=== PATIENT | female | born 1940 | race Caucasian/White ===

== ENCOUNTER → 2018-02-01 08:14 | Outpatient (CLI) | payer MEDICARE, OTHER ==
[~2018-02-01] VITALS: Ht 177.8 cm; Wt 95.5 kg
--- NOTE | ~2018-02-01 | HEMODYNAMI ---
PATIENT:THEO LAWSON MEDICAL RECORD: [id number] : 36 LOCATION:[facility] ADMISSION DATE: 02/01/18 Generatedon:02/01/201810:05 Patient name: THEO LAWSON Patient #: [id number] SSN: : 1940 Date of study: 02/01/2018 Page: Of Hemodynamic Procedure Report Patient Data Patient Demographics Procedure consent was obtained First Name: THEO Gender: Female Last Name: LULU : 1940 [facility] Initial: XU Age: 77 year(s) Patient #: [id number] Race: Unknown Additional ID: [id number] Contact details [address]: [address] [place] [address] State: [place] City: [place] Zip code: [address] Past Medical History Allergies Allergen Reaction Date Comments Reported Other allergy 02/01/2018 Thallium Admission Admission Data Admission Date: 02/01/2018 Admission Time: 8:14 Weight (lbs.): 215 Weight (kg.): 97.52 Lab Results Lab Result Date: 02/01/2018 Lab Result Time: 0:00 Biochemistry Name Units Result Min Max BUN mg/dl 34 --(----)-* 7 18 Creatinine mg/dl 1.2 --(---*)-- 0.6 1.3 CBC Name Units Result Min Max Hemoglobin g/dl 12.1 *-(----)-- 13.5 17.5 Procedure Procedure Types Cath Procedure Diagnostic Procedure LHC LHC w/Coronaries Procedure Description Procedure Date Procedure Date: 02/01/2018 Procedure Start Time: 9:55 Procedure End Time: 10:05 Procedure Staff Name Function Phillip Mayo MD Performing Physician Deisi Weaver RT Monitor Petrona Montelongo RT Scrub Farheen Thorne RN Nurse Viridiana Martines RN Nurse Procedure Data Cath Procedure Fluoroscopy Diagnostic fluoroscopy Total fluoroscopy Time: 1.3 time: 1.3 min min Diagnostic fluoroscopy Total fluoroscopy dose: 303 dose: 303 mGy mGy Contrast Material Contrast Material Type Amount (ml) Isovue 300 43 Entry Location Entry Primary Successful Side Size Upsize Upsize Entry Closure Succes sful Closure Location (Fr) 1 (Fr) 2 (Fr) Remarks Device Remarks Femoral Right 5 Fr Exoseal artery Estimated blood loss: 5 ml Diagnostic catheters Device Type Used For End Catheter Placement MULTIPACK Pigtail 5 Fr LV Angiography catheter MULTIPACK JL 4.0 5Fr Left Coronary catheter Angiography MULTIPACK 3DRC 5Fr Right Coronary catheter Angiography Procedure Complications No complications Procedure Medications Medication Administration Route Dosage Oxygen etCO2 Nasal cannula 2 l/min Zofran I.V. 4 mg Lidocaine 2% added to field 20 Heparin Flush Bag added to field 2 bags (1000units/500ml NS) 0.9% NaCl I.V. 100 ml/hr Versed I.V. 2 mg Fentanyl I.V. 50 mcg Fentanyl I.V. 50 mcg Hemodynamics Rest HGB: 12.1 (g/dl) Heart Rate: 63 (bpm) Snapshots Pre Cath Intra NCS Post Cath Vital Signs Time Heart Resp SPO2 etCO2 NIBP (mmHg) Rhythm Pain Sedation Rate (ipm) (%) (mmHg) Status Level (bpm) 9:35:16 60 13 99 32 171/77(127) NSR 0 (11) 10(A) , No pain 9:40:13 62 14 100 36 162/72(107) NSR 0 (11) 10(A) , No pain 9:45:02 63 15 96 35 130/66(100) NSR 0 (11) 10(A) , No pain 9:49:46 66 17 100 34.6 136/71(119) NSR 0 (11) 10(A) , No pain 9:55:10 60 15 100 35.3 133/67(103) NSR 0 (11) 10(A) , No pain 9:59:53 85 15 100 34.6 133/75(106) NSR 0 (11) 10(A) , No pain 10:04:39 67 6 100 32.3 143/70(116) NSR 0 (11) 10(A) , No pain Medications Time Medication Route Dose Verified Delivered Reason Notes Ef fectiveness by by 9:38:36 Zofran I.V. 4 mg Phillip Zhong Per pt has Gael Thorne RN physician N/V with sedation 9:38:37 Oxygen etCO2 2 Phillip Buffsandro used for Nasal l/min Gael Tohrne RN procedure cannula 9:38:58 Lidocaine 2% added 20ml Phillip Phillip for local to vial Gael Mayo MD anesthetic field 9:39:07 Heparin Flush added 2 Phillipdg Fisher used for Bag to bags Gael Mayo MD procedure (1000units/500ml field NS) 9:39:13 0.9% NaCl I.V. 100 Phillip Buffie Per ml/hr Gael Thorne RN physician 9:52:04 Versed I.V. 2 mg Phillip Viridiana for Gael Martines sedation RN 9:52:20 Fentanyl I.V. 50 Phillip Viridiana for mcg Gael Martines sedation RN 9:57:17 Fentanyl I.V. 50 Phillip Viridiana for mcg Gael Martines sedation kitchen helper Log Time Note 9:19:13 Time tracking: Regular hours (M-F 7:00 - 5:00) 9:19:17 Plan of Care:Hemodynamics will remain stable., Cardiac rhythm will remain stable., Comfort level will be maintained., Respiratory function will remain adequate., Patient/ family verbilizes understanding of procedure., Procedure tolerated without complication., Recovers from procedure without complications.. 9:19:19 Signed procedure consent form obtained from patient. 9:19:31 H&P Date Dictated: 01/04/2018 Within 30 days and on chart., H&P Addendum completed by physician on day of procedure. (MUST COMPLETE FOR ALL OUTPATIENTS). 9:19:41 Viridiana Martines RN sent for patient. Start room use. 9:20:01 Patient Weight : 215 lbs 9:24:21 Lab Result : Creatinine 1.2 mg/dl 9:24:21 Lab Result : BUN 34 mg/dl 9:24:21 Lab Result : Hemoglobin 12.1 g/dl 9:27:23 Patient received from Pre/Post Procedure Room to CCL 1 Alert and oriented. Tansferred to table in Supine position. 9:27:26 Warm blankets applied, and romel hugger turned on for patient comfort. 9:27:27 Correct patient and procedure confirmed by team. 9:27:27 ECG and BP/O2 sat monitors applied to patient. 9:34:11 Vital chart was started 9:36:03 Rhythm: sinus rhythm 9:36:05 Baseline sample Acquired. 9:36:05 Full Disclosure recording started 9:36:06 Pre-procedure instructions explained to patient. 9:36:07 Pre-op teaching completed and patient verbalized understanding. 9:36:08 Family in patients room. 9:36:10 Patient NPO since Midnight. 9:36:26 Patient allergic to Other allergyThallium 9:36:29 Is the patient allergic to Iodine/contrast media? No. 9:36:32 Is patient on blood thinner?No 9:36:33 Patient diabetic? No. 9:36:36 Previous problem with sedation/anesthesia? Yes Nausea/Vomiting 9:36:50 Snore? Yes 9:36:51 Sleep apnea? No 9:36:52 Deviated septum? No 9:36:53 Opens mouth fully? Yes 9:36:53 Sticks out tongue? Yes 9:36:55 Airway obstruction? No ? 9:36:57 Dentures? No ? 9:37:01 Pre procedure: right dorsailis pedis pulse 2+ Normal; easily identifiable; not easily obliterated 9:37:03 Modified Luis's test Ulnar > 7 seconds. 9:37:06 Patient pain scale 0/10 ?. 9:37:13 IV patent on arrival in left forearm with 0.9% NaCl at O. 9:37:15 Lab results completed and on chart. 9:37:19 Right groin area was prepped with chlora-prep and draped in sterile fashion 9:37:20 Alarms reviewed by R. N. 9:37:20 Sharps counted by scrub and verified by R.N. 9:37:24 Use device set Femoral Dx 9:37:25 ACIST Syringe (59764) opened to sterile field. 9:37:26 Bag Decanter (2002S) opened to sterile field. 9:37:26 Medline Cath Pack ([id number]) opened to sterile field. 9:37:27 DIAGNOSTIC WIRE .035 260cm J wire (945669) opened to sterile field. 9:37:28 ACIST Manifold (07693) opened to sterile field. 9:37:29 DIAGNOSTIC Multipack 5Fr catheter set ([id number]) opened to sterile field. 9:37:31 Tegaderm 4 x 4 (1626W) opened to sterile field. 9:37:32 SHEATH Prelude 5Fr 0.035 ([id number]-[id number]-77-035) opened to sterile field. 9:38:36 Zofran 4 mg I.V. was administered by Farheen Thorne RN; Per physician; pt has N/V with sedation 9:38:37 Oxygen 2 l/min etCO2 Nasal cannula was administered by Farheen Thorne RN; used for procedure; 9:38:58 Lidocaine 2% 20ml vial added to field was administered by Phillip Mayo MD; for local anesthetic; 9:39:07 Heparin Flush Bag (1000units/500ml NS) 2 bags added to field was administered by Phillip Mayo MD; used for procedure; 9:39:13 0.9% NaCl 100 ml/hr I.V. was administered by Farheen Thorne RN; Per physician; 9:42:35 Zero performed for pressure channel P1 9:42:55 Physician paged 9:43:28 ACIST Hand Control (42971) opened to sterile field. 9:51:33 Final Timeout: patient, procedure, and site verified with staff and physician. All members of the team are in agreement. 9:51:35 Right groin site verified by team. 9:51:38 Physical assessment completed. ASA score P 2 - A patient with mild systemic disease as per Phillip Mayo MD. 9:51:40 Sedation plan: IV Moderate Sedation Medication:Versed, Fentanyl 9:52:04 Versed 2 mg I.V. was administered by Viridiana Martines RN; for sedation; 9:52:20 Fentanyl 50 mcg I.V. was administered by Viridiana Martines RN; for sedation; 9:55:27 Procedure started. 9:55:30 Local anesthetic to right femoral artery with Lidocaine 2% by Phillip Mayo MD.INITIAL ACCESS ONLY 9:55:37 A 5 Fr sheath was inserted into the Right Femoral artery 9:57:17 Fentanyl 50 mcg I.V. was administered by Viridiana Martines RN; for sedation; 9:57:35 A MULTIPACK Pigtail 5 Fr catheter was advanced over the wire and used for LV Angiography. 9:57:39 LV gram done using MCCORD 9:57:42 Injector settings: Ml/sec: 10, Volume: 20, 9:58:28 EF : 50 % 9:58:29 Catheter removed. 9:58:41 A MULTIPACK JL 4.0 5Fr catheter was advanced over the wire and used for Left Coronary Angiography. 9:59:46 Catheter removed. 10:00:05 A MULTIPACK 3DRC 5Fr catheter was advanced over the wire and used for Right Coronary Angiography. 10:01:08 Catheter removed. 10:01:10 EXOSEAL 5Fr (EX500) opened to sterile field. 10:01:24 Sheath removed intact; hemostasis achieved with Exoseal to the Right Femoral artery. 10:01:26 Procedure ended.(Physican Out) 10:01:47 Fluoroscopy time 01.30 minutes. 10:01:50 Flurop Dose total: 303 10:01:50 Fluoroscopy dose: 303 mGy 10:01:55 Contrast amount:Isovue 300 43ml. 10:01:59 Sharps counted by scrub and verified by R.N. 10:02:00 Insertion/operative site no bleeding no hematoma. 10:02:02 Post-op/insertion site Right Femoral artery dressed using a 4 x 4 and Tegaderm. 10:02:06 Post right femoral artery:stable, clean and dry 10:02:07 Post Procedure Pulses reassessed and unchanged 10:02:10 Post-procedure physical assessment completed. ASA score P 2 - A patient with mild systemic disease as per Phillip Mayo MD. 10:02:12 Post procedure rhythm: unchanged. 10:02:16 Estimated blood loss: 5 ml 10:02:17 Post procedure instruction explained to patient.Patient verbalizes understanding. 10:02:17 Patient needs reinforcement of post procedure teaching. 10:02:31 Procedure Complication : No complications 10:02:34 See physician's report for complete and final results. 10:03:08 Procedure and supply charges have been captured, reviewed, submitted and are correct. 10:05:19 Vital chart was stopped 10:05:22 Report given to Pre/Post Procedure Room. 10:05:25 Patient transfered to Pre/Post Procedure Room with Stretcher. 10:05:29 Procedure ended. 10:05:29 Full Disclosure recording stopped 10:05:32 End room use (Document Last) Device Usage Item Name Manufacture Quantity Catalog Number Hospital Part Current M inimal Lot# / Charge Number Stock Stock Serial# Code ACIST Syringe Acist 1 [id number] 201315 344165 399165 2 0 (64444) [employer] Bag Decanter Microtek 1 2001S 789666 34551 496202 5 (2001S) Medical Inc. Medline Cath Cardinal 1 [id number] 124680 53484 351449 5 Pack Health ([id number]) DIAGNOSTIC WIRE St Bobby 1 050588 201287 444145 422180 3 0 .035 260cm J wire (123462) ACIST Manifold Acist 1 29502 297865 341445 787213 5 (96303) [employer] DIAGNOSTIC Cardinal 1 [id number] 306084 01404 566321 3 0 Multipack 5Fr Health catheter set (EX6173) Tegaderm 4 x 4 3M 1 1626W 839089 007787 183314 5 (1626W) SHEATH Prelude Merit 1 [id number]-[id number]-52-035 346508 118249 937838 5 5Fr 0.035 Medical (KWN-2W-40-035) ACIST Hand Acist 1 23009 338842 892906 594821 5 Control (17867) [employer] Inc MULTIPACK Cardinal 1 580307 5 Pigtail 5 Fr Health catheter MULTIPACK JL Cardinal 1 014879 5 4.0 5Fr Health catheter MULTIPACK 3DRC Cardinal 1 [id number] 5 5Fr catheter Health EXOSEAL 5Fr Cardinal 1 EX500 111754 569620 267371 1 0 (EX500) Health Signature Audit [place] Stage Time Signature Unsigned Intra-Procedure 02/01/2018 Deisi 10:05:42 AM Counts RT(R) Signatures Monitor : Deisi Signature : Counts RT Date : Time : [id number] [place] [address]
--- NOTE | ~2018-02-01 | OP ---
PATIENT NAME: THEO LAWSON MEDICAL RECORD: [id number] :38 LOCATION:D.CAT ADMISSION DATE: SURGEON: MARCELLA ESPARZA MD DATE OF OPERATION: 02/01/2018 PROCEDURES: 1. Left heart catheterization. 2. Selective coronary angiography. 3. Left ventriculogram. INDICATION: Angina and coronary artery disease. PROCEDURE IN DETAIL: After informed consent was obtained and after a detailed description of risks, benefits as well as alternative therapies, the patient elected to proceed with angiogram and heart catheterization. The right femoral area was prepped and draped in normal sterile fashion. Right femoral artery was cannulated via modified Seldinger technique with placement of 6-Czech sheath. All catheters exchanged through this sheath. FINDINGS: Left ventriculogram was performed in standard 30-degree MCCORD view, reveals good cardiac wall motion throughout all segments. Overall ejection fraction estimated 60%. SELECTIVE CORONARY ANGIOGRAPHY: Left main, left anterior descending, left circumflex, right coronary artery are smooth-walled vessels with no angiographic evidence of coronary artery disease. OVERALL IMPRESSION: 1. No angiographic evidence of coronary artery disease. 2. Normal left heart pressures. 3. Normal left ventricular systolic function. Chest pain is noncardiac in etiology. No further cardiac workup needs to be ascertained. TRANSINT:[id number] Voice Confirmation ID: [id number] DOCUMENT ID: [id number] MARCELLA ESPARZA MD at 0924 CC: [id number] DICTATION DATE: 02/01/18 1006 BRUSH WASHER: 02/01/18 1107 DEP CLI 02/01/18 [id number] [place] [address]
[~2018-02-01 08:14] MED LIST: BAYER CHEWABLE81 MG PO; CYMBALTA20 MG PO; FOLIC ACID1 MG PO; INDOCIN25 MG PO; NEURONTIN 400400 MG PO; OXYBUTYNIN CHLOR5 MG PO; TENORMIN50 MG PO
[2018-02-01 08:54] VITALS: BP 132/97; Ht 177.8 cm; Wt 95.5 kg
[2018-02-01 08:59] LABS: BASOPHILS 0.9 % (0-2); EOSINOPHILS 5.9 % (0-7); HEMATOCRIT 36.3 % (36.0-48.0); HEMOGLOBIN 12.1 g/dL (12-16); IMMATURE GRANULOCYTES 0.1 % (0-5); LYMPHOCYTES 17.6 % (15-50); MCH 32.7 pg (26.0-34.0); MCHC 33.3 g/dL (31.0-37.0); MCV 98.1 fL (80.0-100.0); MEAN PLATELET VOLUME 9.1 fL (7.4-10.4); MONOCYTES 8.9 % (2-11); NEUTROPHILS 66.6 % (40-80); PLATELET COUNT 215 10x3/uL (130-400); RDW 13.9 % (11.5-14.5)
[2018-02-01 09:14] LABS: ANION GAP 12.8 mmol/L (8-16); CARBON DIOXIDE 26.7 mmol/L (21.0-32.0); CREATININE - SERUM 1.2 mg/dL (0.6-1.3); POTASSIUM - SERUM 5.5 mmol/L (3.5-5.1)
== END | disposition home or self-care (01) ==
LOC: D.CATH 08:14
PROVIDERS: Internal Medicine Interventional Cardiology
DX: R07.89 Other chest pain (principal); Z01.812 Encounter for preprocedural laboratory examination

== ENCOUNTER → 2018-11-10 08:49 | Outpatient (CLI) | payer MEDICARE, OTHER ==
[2018-02-01 08:54] VITALS: BMI 30.1
== END | disposition home or self-care (01) ==
LOC: D.RAD 08:49
PROVIDERS: ATTEND Family Medicine
DX: R13.10 Dysphagia, unspecified (principal)

== ENCOUNTER → 2019-01-24 09:56 | Outpatient (CLI) | payer MEDICARE, OTHER ==
[2018-02-01 08:54] VITALS: BMI 30.1
--- NOTE | ~2019-01-24 | HEMODYNAMI ---
PATIENT:THEO LAWSON MEDICAL RECORD: [id number] : 36 LOCATION:[facility] ADMISSION DATE: 01/24/19 Generatedon:01/24/201911:38 Patient name: THEO LAWSON Patient #: [id number] SSN: : 1940 Date of study: 01/24/2019 Page: Of Hemodynamic Procedure Report Patient Data Patient Demographics Procedure consent was obtained First Name: THEO Gender: Female Last Name: LULU : 1940 [facility] Initial: XU Age: 78 year(s) Patient #: [id number] Race: Unknown Additional ID: [id number] Contact details Address: [address] [place] [address] State: [place] City: [place] Zip code: [address] Past Medical History Allergies Allergen Reaction Date Comments Reported Other allergy 02/01/2018 Thallium Admission Admission Data Admission Date: 01/24/2019 Admission Time: 9:56 Procedure Procedure Types Cath Procedure Peripheral Cath Diagnostic Procedure Miscellaneous Epidural Steroid Injection Procedure Description Procedure Date Procedure Date: 01/24/2019 Procedure Start Time: 11:22 Procedure Staff Name Function Josue Plasencia MD Performing Physician Babak Headley RT Monitor Ievth Earl RN Nurse Procedure Data Cath Procedure Fluoroscopy Diagnostic fluoroscopy Total fluoroscopy Time: 0.6 time: 0.6 min min Diagnostic fluoroscopy Total fluoroscopy dose: 16 dose: 16 mGy mGy Hemodynamics Rest Pre Cath Intra NCS Post Cath Procedure Log Time Note 11:04:27 Babak Headley RT (R) (CV) sent for patient. Start room use. 11:04:34 Time tracking: Regular hours (M-F 7:00 - 5:00) 11:04:39 Patient received from Other to IR Alert and oriented. Tansferred to table in Prone position. 11:04:42 Signed procedure consent form obtained from patient. 11:04:44 Correct patient and procedure confirmed by team. 11:04:49 - 11:04:50 Pre-procedure instructions explained to patient. 11:04:50 Pre-op teaching completed and patient verbalized understanding. 11:04:52 Family in waiting room. 11:05:33 Is the patient allergic to Iodine/contrast media? No. 11:05:36 Is patient on blood thinner?No 11:05:41 Sharps counted by scrub and verified by R.N. 11:05:42 Alarms reviewed by R. N. 11:05:46 Lumbar area was prepped with betadine and draped in sterile fashion 11:19:21 Physician arrived 11:19:22 --------ALL STOP TIME OUT------ 11:19:22 Final Timeout: patient, procedure, and site verified with staff and physician. All members of the team are in agreement. 11:19:29 Lumbar site verified by team. 11:19:36 Sedation plan: Local Anesthetic Medication:Lidocaine 11:22:15 Procedure started. 11:22:15 Full Disclosure recording started 11:22:22 Local anesthetic to Lumbar area with Lidocaine 1% by Josue Plasencia MD.INITIAL ACCESS ONLY 11:26:37 KIT EPIDURAL CATHETERIZATION opened to sterile field. 11:37:44 Procedure ended.(Physican Out) 11:37:48 Fluoroscopy time 00.60 minutes. 11:37:53 Fluoroscopy dose: 16 mGy 11:37:53 Flurop Dose total: 16 11:38:22 bandaide applied site stable pt sent home Device Usage Item Name Manufacture Quantity Catalog Hospital Part Current Minima l Lot# / Number Charge Number Stock Stock Serial# Code KIT EPIDURAL Teleflex 1 [id number] 5 CATHETERIZATION Signature Audit [place] Stage Time Signature Unsigned Intra-Procedure 01/24/2019 Babak 11:38:36 AM Fang RT (R) (CV) [facility] [address] [id number]
== END | disposition home or self-care (01) ==
LOC: D.SP 09:56 → D.RAD 11:00 → D.SP 11:00
PROVIDERS: ATTEND Orthopaedic Surgery
DX: M54.5 Low back pain (principal)